=== PATIENT | male | born 1965 | race Caucasian/White ===

== ENCOUNTER → 2017-03-11 | Outpatient (CLI) | payer BC ==
[~2017-03-11] VITALS: Ht 177.8 cm; Wt 117.9 kg
[~2017-03-11] MED LIST: ASPI1TAB PO; JANU50TA25 PO; LISI10TA4 PO; NS 1,000 ML IV ONE; OMEP20CA3 PO; PROPOFOL 200 MG/20 ML VIAL As Ordered ONE; VITA100037 PO; ZOCO20TA PO
--- NOTE | 2017-03-11 12:51 | ROOR ---
Patient Name: Jannie Woods Procedure Date: 03/11/2017 12:32 PM Date of : 1965 Age: 51 Room: [facility] Gender: Male Note Status: Finalized Procedure: Total Colonoscopy to Cecum Indications: Screening for colorectal malignant neoplasm Providers: Olayinka Hickey MD Referring MD: JENNY MATTA MD Requesting Provider: Medicines: Monitored Anesthesia Care Complications: No immediate complications. Procedure: Pre-Anesthesia Assessment: - The heart rate, respiratory rate, oxygen saturations, blood pressure, adequacy of pulmonary ventilation, and response to care were monitored throughout the procedure. The Colonoscope was introduced through the anus and advanced to the cecum, identified by appendiceal orifice and ileocecal valve. The colonoscopy was performed without difficulty. The patient tolerated the procedure well. The quality of the bowel preparation was excellent. Findings: The perianal and digital rectal examinations were normal. Non-bleeding internal hemorrhoids were found during retroflexion. The hemorrhoids were small and Grade I (internal hemorrhoids that do not prolapse). Multiple small and large-mouthed diverticula were found in the recto-sigmoid colon, sigmoid colon and descending colon. The exam was otherwise without abnormality on direct and retroflexion views. Impression: - Non-bleeding internal hemorrhoids. - Diverticulosis in the recto-sigmoid colon, in the sigmoid colon and in the descending colon. - The examination was otherwise normal on direct and retroflexion views. - No specimens collected. - The exam was otherwise normal to the cecum. Recommendation: - Patient has a contact number available for emergencies. The signs and symptoms of potential delayed complications were discussed with the patient. Return to normal activities tomorrow. Written discharge instructions were provided to the patient. - High fiber diet. - Discharge patient to home. - Continue present medications. - Repeat colonoscopy in 10 years for screening purposes. - Return to referring physician. - The findings and recommendations were discussed with the patient's family. Olayinka Hickey MD Olayinka Hickey MD 03/11/2017 12:50:58 PM This report has been signed electronically. Number of Addenda: 0 Note Initiated On: 03/11/2017 12:32 PM Estimated Blood Loss: Estimated blood loss: none.
[2017-03-11 13:20] VITALS: BP 155/92
== END | disposition home or self-care (01) ==
LOC: M OPP 11:58
PROVIDERS: ATTEND Internal Medicine Gastroenterology
DX: Z12.11 Encounter for screening for malignant neoplasm of colon (principal); K64.0 First degree hemorrhoids; K57.30 Diverticulosis of large intestine without perforation or abscess without bleeding; I10 Essential (primary) hypertension; E11.9 Type 2 diabetes mellitus without complications; R12 Heartburn; E78.5 Hyperlipidemia, unspecified; Z79.82 Long term (current) use of aspirin; Z79.84 Long term (current) use of oral hypoglycemic drugs; Z79.899 Other long term (current) drug therapy; Z80.3 Family history of malignant neoplasm of breast

== ENCOUNTER → 2017-09-18 | Outpatient (CLI) | payer BC ==
[~2017-09-18] MED LIST changes: -NS 1,000 ML IV ONE; -PROPOFOL 200 MG/20 ML VIAL As Ordered ONE; -VITA100037 PO; +VITA100067 PO
--- NOTE | 2017-09-18 17:50 | REP ---
Clinical: Persistent cough . Comparison: None . Technique: PA and lateral. Findings: The mediastinum and cardiac silhouette are normal. The lung ramirez are clear and without acute consolidation, effusion, or pneumothorax. The skeletal structures are intact and normal. Impression: 1. No acute cardiopulmonary process. Signed by Jonathan Mullins MD 09/18/2017 05:41 P
== END ==
LOC: M LRY 17:27
PROVIDERS: ATTEND Physician Assistant
DX: R05 Cough (principal)

== ENCOUNTER → 2019-08-15 | Outpatient (CLI) | payer OTHER ==
[~2019-08-15] MED LIST changes: -ASPI1TAB PO; +ASPI81TA26 PO; -OMEP20CA3 PO; +OMEP20CA4 PO
--- NOTE | 2019-08-15 14:50 | REP ---
FOOT: REASON: Great toe pain. COMPARISON: None. FINDINGS: The joint spaces are symmetric and relatively well maintained. There is no evidence of acute fracture or destructive osseous lesion. IMPRESSION: Negative. There is a large plantar calcaneal heel spur. Electronically Signed by Daniel Pritchard DO 08/15/2019 04:43 P
== END ==
LOC: M LRY 13:50
PROVIDERS: ATTEND Nurse Practitioner Family
DX: M79.674 Pain in right toe(s) (principal); M77.31 Calcaneal spur, right foot

== ENCOUNTER → 2019-08-15 | Outpatient (REF) | payer OTHER | LOC: M SFHCLERA 14:29 | PROVIDERS: ATTEND Nurse Practitioner Family | DX: M79.674 Pain in right toe(s) (principal) ==

== ENCOUNTER → 2019-11-25 | Outpatient (CLI) | payer OTHER, BC ==
[~2019-11-25] MED LIST changes: +OMEP1CAP73 PO; -OMEP20CA4 PO
--- NOTE | 2019-11-25 18:03 | REP ---
PA and lateral chest three views including PA and two lateral views: Comparison is 09/18/2017. The lung ramirez are clear. The cardiac size is normal. The raven, mediastinum, and skeletal structures are unremarkable. Impression: Negative PA and lateral chest. There is no interval change. Electronically Signed by Hector Rojas MD 11/25/2019 05:54 P
== END ==
LOC: M LRY 17:37
PROVIDERS: ATTEND Physician Assistant
DX: R05 Cough (principal)

== ENCOUNTER → 2020-02-07 | Outpatient (CLI) | payer BC ==
[~2020-02-07] MED LIST changes: +METHACHOLINE KIT (J7674) INH ONE
--- NOTE | 2020-02-07 13:22 | PFTRPT ---
Height: 70.50 Inches Weight: 260.00 Lbs BSA: 2.35 Diagnosis: R05 DATE OF PROCEDURE: 02/07/2020 ORDERED BY: Wen Arnett INTERPRETATION: Study of excellent technical quality. Under protocol, methacholine was administered. At a dose of 10 mg or 63.875 CDUs, a 20% decline in the FEV1 was noted. PC of 9.24 is in the indeterminate range, however. Flow rates did return to baseline post bronchodilator administration. IMPRESSION: Indeterminate study. Please correlate clinically. MTDD
== END ==
LOC: M CARPUL 12:19
PROVIDERS: ATTEND Nurse Practitioner Family
DX: R05 Cough (principal)
CPT/HCPCS: 94070; J7674

== ENCOUNTER → 2020-10-09 | Outpatient (CLI) | payer BC ==
[~2020-10-09] MED LIST changes: -METHACHOLINE KIT (J7674) INH ONE
--- NOTE | 2020-10-22 14:44 | SLEEPHOME ---
NOCTURNAL POLYSOMNOGRAPHY HOME DATE: 10/09/2020 ORDERED BY: Wen Arnett NP Diagnostic home sleep testing was performed due to concern for the obstructive sleep apnea syndrome. For testing, a nocturnal T3 respiratory monitoring device was used. Continuous record was made of pulse, oxygen saturation, air flow, chest and abdominal strain, and body position. Six hours and 39 minutes of data were reviewed. Six hours and 34 minutes marked as time in bed. During the interval marked time in bed, there were 188 respiratory events identified of 10 seconds in duration or greater for a respiratory event index of 28.6. The events were obstructive. Baseline pulse rate is 78 beats per minute. Pulse rate ranged 64 to 107. Baseline saturation was 92%. Saturations fell to 88%. Testing was performed in both the supine and nonsupine positions. IMPRESSION: Abnormal home sleep testing with repetitive respiratory events and oxygen desaturations to 88% with a respiratory event index of 28.6 is consistent with the obstructive sleep apnea syndrome. RECOMMENDATION: The patient should be encouraged to undergo a formal sleep evaluation.
== END ==
LOC: M SLEEP HO 13:19
PROVIDERS: ATTEND Nurse Practitioner Family
DX: R06.83 Snoring (principal)

== ENCOUNTER → 2021-01-28 | Outpatient (CLI) | payer BC ==
[~2021-01-28] MED LIST changes: +LISI10TA22 PO; -LISI10TA4 PO
--- NOTE | 2021-01-29 02:03 | REP ---
INDICATION: PAIN IN RIGHT. COMPARISON: None. TECHNIQUE: AP, lateral, tunnel, and sunrise views of the right knee. FINDINGS: Osseous structures, joint spaces, and surrounding soft tissues are essentially normal and age-appropriate. No evidence for fracture or dislocation. No overt arthritic degenerative changes. No obvious effusion.. IMPRESSION: Normal age-appropriate right knee radiographs. <Electronically signed by Jonathan Mullins > 01/29/21 [id number]
== END ==
LOC: M SOG 01-25 13:18
PROVIDERS: ATTEND Orthopaedic Surgery Sports Medicine
DX: M25.561 Pain in right knee (principal)

== ENCOUNTER → 2021-02-05 | Outpatient (CLI) | payer BC ==
--- NOTE | 2021-02-05 14:14 | REP ---
INDICATION: OTH MENISCUS DERANGEMENT RT KNEE ? TEAR. COMPARISON: Radiographs 01/28/2021. TECHNIQUE: Multiple sequences obtained in the axial, coronal and sagittal planes. FINDINGS: Menisci: There is a tear of the posterior horn of the medial meniscus. Lateral meniscus is intact. Cruciate ligaments: Intact. Collateral ligaments: Intact. Extensor mechanism/patellar retinacula: Intact. Cartilage: Smooth, no osteochondral defect. There is mild to moderate diffuse chondromalacia of the medial femoral condyle and tibial plateau as well as the femoral notch. There is mild chondromalacia patella. Bone marrow: There is mild subchondral marrow edema in the medial tibial plateau peripherally. Joint fluid: There is a small joint effusion. Popliteal region: No cyst. IMPRESSION: There is a tear of the posterior horn of the medial meniscus. Cruciate and collateral ligaments intact. Mild to moderate diffuse chondromalacia medial femoral condyle and tibial plateau with mild subchondral marrow edema in the medial tibial plateau. Mild chondromalacia patella. Small joint effusion. <Electronically signed by Hector Encarnacion > 02/05/21 [id number]
== END ==
LOC: M PLARAD 10:17
PROVIDERS: ATTEND Orthopaedic Surgery Sports Medicine
DX: M23.303 Other meniscus derangements, unspecified medial meniscus, right knee (principal)

== ENCOUNTER → 2021-03-01 | Outpatient (CLI) | payer BC ==
[~2021-03-01] MED LIST changes: +ARNU1INH INH; +D31000TA2 PO; +METF-838 PO
== END ==
LOC: M LABSMTC 12:44
PROVIDERS: ATTEND Anesthesiology
DX: Z01.818 Encounter for other preprocedural examination (principal); Z11.52 Encounter for screening for COVID-19

== ENCOUNTER 2021-03-06 09:40 | Day surgery (SDC) | payer BC ==
[~2021-03-06] VITALS: Ht 177.8 cm; Wt 115.7 kg
[~2021-03-06 09:40] MED LIST changes: +LIDOCAINE 1% MDV 20ML VIAL SQ PRN; +LIDOCAINE 2% 100MG/5ML SDV (FOR ANES.) As Ordered ONE; +LR 1,000 ML IV ONE; +MIDAZOLAM INJ 2MG/2ML VIAL (J2250 PER 1MG) As Ordered ONE; +ceFAZolin SOD 2 GM in IV 1 EA IV ONE; +fentaNYL 100 MCG/2 ML INJECTION (J3010) As Ordered ONE; +propofoL 200 MG/20 ML VIAL As Ordered ONE
[2021-03-06] MEDS ORDERED: ROCURONIUM BROMIDE 50 MG/5 ML VIAL As Ordered ONE (11:26)
[2021-03-06] MEDS ORDERED: propofoL 200 MG/20 ML VIAL As Ordered ONE (11:26)
[2021-03-06] MEDS ORDERED: LIDOCAINE 1% SDV 30ML VIAL As Ordered ONE (11:58)
[2021-03-06] MEDS ORDERED: fentaNYL 250 MCG/5 ML INJECTION (J3010) As Ordered ONE (12:03)
[2021-03-06] MEDS ORDERED: SUGAMMADEX SODIUM 500 MG/5 ML VIAL (BRIDION) As Ordered ONE (12:19)
[2021-03-06] MEDS ORDERED: ONDANSETRON 4MG/2ML VIAL As Ordered ONE (12:19)
[2021-03-06] MEDS ORDERED: ACETAMINOPHEN 1000MG 100ML IV BTL (OFIRMEV) (J0131 PER 10MG) As Ordered ONE (12:20)
[2021-03-06] MEDS ORDERED: KETOROLAC 60MG 2ML VIAL As Ordered ONE (12:20)
[2021-03-06] MEDS ORDERED: fentaNYL 100 MCG/2 ML INJECTION (J3010) IV PRN (14:00)
[2021-03-06] MEDS ORDERED: ACETAMINOPHEN TAB 650MG DOSE (2X325MG) PO PRN (14:00)
[2021-03-06] MEDS ORDERED: MORPHINE 2 MG/ML 1ML VIAL (J2270) IV PRN (14:00)
[2021-03-06] MEDS ORDERED: LR 1,000 ML IV SCH ×2 (14:00)
[2021-03-06] MEDS ORDERED: HYDROMORPHONE HCL 0.5 MG/ 0.5 ML SYRINGE (J1170 PER 1) IV PRN (14:00)
[2021-03-06] MEDS ORDERED: ONDANSETRON 4MG/2ML VIAL IV PRN ×2 (14:00)
[2021-03-06] MEDS ORDERED: PERCOCET 5MG/325MG TAB PO PRN ×2 (14:00)
[2021-03-06] MEDS ORDERED: METOCLOPRAMIDE INJ 10MG/2ML VIAL (J2765 PER 1) IV PRN (14:00)
[2021-03-06 14:50] VITALS: BP 132/90
--- NOTE | 2021-03-06 15:24 | ROOPDOC ---
[facility] Report Of Operation Report of Operation DATE OF PROCEDURE: 03/06/21 PREPROCEDURE DIAGNOSES: Right knee medial meniscus tear and chondromalacia POSTPROCEDURE DIAGNOSES: Right knee medial meniscus tear and chondromalacia and medial plica. PROCEDURE: Left knee arthroscopy partial medial meniscectomy and debridement plica and debridement medial femoral condyle. SURGEON: Dr. Mushtaq Muhammad MD SAILOR: MD Darnell ANESTHESIA: Gen. anesthesia Dr Tenorio. ESTIMATED BLOOD LOSS: Approximately 10 mL. COMPLICATIONS: None. REMARKS: None. PROCEDURE NOTE: This 55-year-old man had signs and symptoms consistent with medial sided knee pain from a medial meniscus tear as well as mild chondromalacia. He wished to go ahead with knee arthroscopy partial medial meniscectomy. I discussed the pros and cons risks and benefits of nonsurgical versus surgical management. He wished proceed I marked the right lower extremity and proceeded to surgery.. DESCRIPTION OF PROCEDURE: The patient was brought to the operating theater. They were placed supine on the operating room table. All bony prominences are padded. Stress positioner used the patient's right side. Tourniquet was applied to the right thigh 34 inches appropriately padded. Limb was prepped and draped in the usual sterile fashion allowing over 3 minutes prep solution drying time prior to draping. General anesthesia was induced. 2 g IV Ancef was administered prior to starting the case. Preoperative timeout was performed to confirm site the patient and surgery. Began by elevating the limb and inflating the tourniquet to 250 mmHg. I made standard anterolateral and anteromedial arthroscopy portals. I inserted the arthroscope into the anterolateral portal and performed a thorough diagnostic arthroscopy. Patellofemoral cartilage with cartilage is normal. There is a medial sided plica. I debrided this. It took arthroscopy pictures and saved onto the system. The ACL and PCL appeared normal. The lateral compartment had grade 1-2 changes on the tibial plateau side and on the femur it appeared normal. On the medial side there is grade 1 superficial fraying on the medial femoral condyle. Grade 1 softening in the medial tibial plateau. Debrided gently any cartilage flaps. There is a small radial bird beak type tear near the posterior one third posterior horn medial meniscus. I used biting instruments and gentle debridement to resect this back to a stable surface. This was a resection of approximately 5-10% of the total meniscus surface. The anterior and posterior roots and horns were normal and stable to probing as was the lateral meniscus. Knee was thoroughly irrigated. 8 mL 1% lidocaine was instilled around the incision site. Tourniquet let down. Steri-Strips applied. Wound cleaned with wet and dry dressing. Adaptic 4 x 8 gauze abdominal pad dressings were placed and then wrapped over top with 6 inch Norbert bandage. Patient was woken up from general anesthetic transferred off the operating room table and taken to postanesthetic care unit in stable condition. All sponge needle and instrument counts are correct. No complications. Plan patient is to be discharged home according to day surgery criteria. Crutches as needed for the first 2 weeks to start immediate weightbearing as tolerated and range of motion as tolerated. Follow-up in the office 2 weeks time. The patient already picked up the prescription for postoperative pain control. Risk factors for harms from taking opioid medications discussed and assessed including but not limited to personal or family history of substance use disorder, anxiety or depression, , age 65 or older, COPD or other underlying respiratory conditions, and renal or hepatic insufficiency. Discussed with patient concerns and determined any harms they may experience or be currently experiencing such as nausea or constipation, feeling sedated or confused, breathing interruptions during sleep, or taking or craving more opioids than prescribed or difficulty controlling use (addiction). Discussed early warning signs of overdose including confusion, sedation, slurred speech, abnormal gait. . MUSHTAQ MUHAMMAD MD March 06, 2021 15:24
== END 2021-03-06 14:55 | disposition home or self-care (01) ==
LOC: M SDC 09:40
PROVIDERS: ATTEND Orthopaedic Surgery Sports Medicine
DX: S83.241A Other tear of medial meniscus, current injury, right knee, initial encounter (principal); M94.261 Chondromalacia, right knee; M67.51 Plica syndrome, right knee; X58.XXXA Exposure to other specified factors, initial encounter; Y92.89 Other specified places as the place of occurrence of the external cause; E11.9 Type 2 diabetes mellitus without complications; I10 Essential (primary) hypertension; K21.9 Gastro-esophageal reflux disease without esophagitis; J42 Unspecified chronic bronchitis; G47.33 Obstructive sleep apnea (adult) (pediatric); Z79.899 Other long term (current) drug therapy; Z79.82 Long term (current) use of aspirin; Z79.84 Long term (current) use of oral hypoglycemic drugs
CPT/HCPCS: 29881; J0131; J0690; J1885; J2250; J2405; J3010

== ENCOUNTER 2021-04-18 10:34 | Outpatient (RCR) | payer BC ==
[~2021-04-18 10:34] MED LIST changes: -LIDOCAINE 1% MDV 20ML VIAL SQ PRN; -LIDOCAINE 2% 100MG/5ML SDV (FOR ANES.) As Ordered ONE; -LR 1,000 ML IV ONE; -MIDAZOLAM INJ 2MG/2ML VIAL (J2250 PER 1MG) As Ordered ONE; -ceFAZolin SOD 2 GM in IV 1 EA IV ONE; -fentaNYL 100 MCG/2 ML INJECTION (J3010) As Ordered ONE; -propofoL 200 MG/20 ML VIAL As Ordered ONE
== END 2021-04-24 ==
LOC: M PT 10:34
PROVIDERS: ATTEND Orthopaedic Surgery Sports Medicine
DX: Z45.89 Encounter for adjustment and management of other implanted devices (principal)